=== PATIENT | male | born 1965 | race American Indian/Alaskan Native ===

== ENCOUNTER 2019-08-09 13:49 | Emergency (ER) | payer BC, OTHER ==
[2019-08-09 14:17] VITALS: BP 123/80
--- NOTE | 2019-08-09 17:02 | Emergency Department Report ---
Eye Injury/Foreign Body - HPI Duration: Today Eye Location: Left Severity: Severe Tetanus Status: Up to Date Eye Symptoms: Eye Pain: No, Blurred Vision: No, Eye Redness: Yes, Grinding/Hammering Metal: No, Used Eye Protection: No, Contact Lens Use: No, Recalls Injury: No, Photophobia: No Other History: Patient is a 54-year-old male that presents to the emergency room with complaints of redness to his left eye. Patient states it started this morning. Patient states he woke up with the patient denies pain. Patient denies changes in vision. Patient denies headache. Patient denies discharge. Patient denies fever or chills. Patient states it looks like he's got a burst of blood vessel in his eyeball ED Review of Systems ROS: Stated complaint: EYE REDNESS Other details as noted in HPI Constitutional: denies: chills, fever Eyes: denies: eye pain, eye discharge, vision change ENT: denies: ear pain, throat pain Respiratory: denies: cough, shortness of breath, wheezing Cardiovascular: denies: chest pain, palpitations Endocrine: no symptoms reported Gastrointestinal: denies: abdominal pain, nausea, diarrhea Genitourinary: denies: urgency, dysuria Musculoskeletal: denies: back pain, joint swelling, arthralgia Skin: denies: rash, lesions Neurological: denies: headache, weakness, paresthesias Psychiatric: denies: anxiety, depression Hematological/Lymphatic: denies: easy bleeding, easy bruising ED Past Medical Hx - Past Medical History Previous Medical History?: Yes Hx Hypertension: No 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 No distress. Alert and acting appropriately. - Visual Acuity Left Vision Acuity Degree: 20/20 Eye Exam: Neither Injection, Neither Chemosis, Neither Abnormal Pupil, Neither EOMI, Neither Eye Foreign Body, Neither Lid Foreign Body, Neither Mucous Discharge, Neither Purulent Discharge, Neither Corneal Edema, Neither Photophobia Exam: The patient appeared well nourished and normally developed. Vital signs as documented. Head exam is unremarkable. Right eye normal. Left eye shows a subconjunctival hematoma. \\. Lungs are clear to auscultation and percussion. Cardiac exam reveals the Rhythm is regular. First and second heart sounds normal. No murmurs, rubs or gallops. ED Course Vital Signs 08/09/19 14:16 Temperature 98.3 F Pulse Rate 82 Respiratory 20 Rate Blood Pressure 123/80 O2 Sat by Pulse 98 Oximetry - Reevaluation(s) Reevaluation #1: I discussed clinical findings with patient. Discussed plan of care with patient. Patient agrees with plan of care. Patient wanted to see an psychiatric lpn. I discussed discharge instructions the patient. Patient voiced understanding of discharge instructions. Patient is stable for discharge. Patient was discharged home. 08/09/19 17:05 ED Medical Decision Making - Medical Decision Making Patient is a 54-year-old male that presents emergent with complaints of redness to his left eye. Patient clinical findings are consistent with a subconjunctival hematoma. Patient does not have any discharge or signs of conjunctivitis. Patient will referred to an psychiatric lpn. - Differential Diagnosis subconjunctival hematoma. Critical care attestation.: If time is entered above; I have spent that time in minutes in the direct care of this critically ill patient, excluding procedure time. ED Disposition Clinical Impression: Subconjunctival hematoma Qualifiers: Laterality: left Qualified Code(s): H11.32 - Conjunctival hemorrhage, left eye Disposition: DC-01 TO HOME OR SELFCARE Is pt being admited?: No Does the pt Need Aspirin: No Condition: Stable Instructions: Subconjunctival Hemorrhage (ED) Additional Instructions: patient to follow-up with primary care in 2-3 days. Patient to return to ER condition worsens. Patient take Tylenol when necessary for pain. Patient to use warm compresses to the left eye. Patient to follow-up with an psychiatric lpn in 2-3 days. Patient increase water. Patient to rest. Patient to eat a low-salt diet. Patient eat heart healthy diet. Referrals: SVEN BRIDGES MD [Staff Physician] - 2-3 Days Time of Disposition: 17:04
== END 2019-08-09 17:42 | disposition home or self-care (01) ==
LOC: ED 13:49
DX: H11.32 Conjunctival hemorrhage, left eye (principal); F17.200 Nicotine dependence, unspecified, uncomplicated; Z88.0 Allergy status to penicillin
CPT/HCPCS: 99283